=== PATIENT | female | born 1950 | race Caucasian/White ===

== ENCOUNTER 2019-08-21 14:56 | Outpatient (CLI) | payer OTHER, SELFPAY ==
[2019-08-21 16:06] LABS: Hematocrit 41.3 % (37.0-47.0); Hemoglobin 13.1 g/dL (12.0-15.0); Mean Corpuscular HGB Conc 31.7 g/dl (32-36); Mean Corpuscular Volume 91.4 fl (80-100); Mean Platelet Volume 10.7 fl (7.4-10.4); Platelet Count Result 308 k/mm3 (150-375); Red Blood Count 4.52 M/mm3 (4.2-5.4); Red Cell Distribution Width 12.9 % (11.5-14.5); White Blood Count 8.1 K/mm3 (4.5-10.0)
[2019-08-21 16:20] LABS: Alanine Aminotransferase 39 U/L (4-35); Albumin Level 4.4 g/dL (3.5-5.1); Alkaline Phosphatase 92 U/L (38-126); Aspartate Amino Transferase 38 U/L (14-36); Bilirubin,Total 0.2 mg/dL (0.2-1.3); Blood Urea Nitrogen 20 mg/dL (7-17); Calcium 9.2 mg/dL (8.4-10.2); Carbon Dioxide 28 mmol/L (22-30); Chloride 105 mmol/L (98-107); Cholesterol 136 mg/dL (0-200); Estimated Glomerular Filt Rate > 60; Glucose 118 mg/dL (65-105); HDL Direct 35 mg/dL; Potassium 4.5 mmol/L (3.4-5.0); Sodium 139 mmol/L (137-145); Triglycerides 156 mg/dL (<150)
[2019-08-21 16:28] LABS: Hemoglobin A1C 6.9 % (<5.7)
[2019-08-21 16:31] LABS: LDL Cholesterol Direct 71 mg/dL
== END 2019-08-21 14:57 | disposition home or self-care (01) ==
LOC: ANHIMG 14:59 → ANHLAB 15:02
PROVIDERS: PCP Internal Medicine; Visit Provider Internal Medicine
DX: E78.5 Hyperlipidemia, unspecified (principal); R73.9 Hyperglycemia, unspecified
CPT/HCPCS: 36415; 80053; 80061; 83036; 84443; 85027

== ENCOUNTER 2019-08-27 13:45 | Outpatient (CLI) | payer OTHER, SELFPAY ==
--- NOTE | ~2019-08-27 | US_ITS ---
US breast BI complete DATE: 08/27/2019 14:23 INDICATION: Right breast pain. Patient reportedly cannot tolerate mammography. TECHNIQUE: Bilateral complete breast ultrasound examination COMPARISON: None FINDINGS: Bilateral breast implants are evident. No suspicious mass or shadowing of either breast is detected sonographically. No breast cysts are not ed. Ultrasound does not supplant mammography for screening purposes and may miss findings very early javed st cancer such as subtle microcalcifications that could be detected mammographically. IMPRESSION: No sonographic evidence of breast mass Bilateral breast implants. Reviewed, dictated and finalized at [facility]. Reviewed, dictated and finalized at [facility].
== END 2019-08-27 13:46 | disposition home or self-care (01) ==
PROVIDERS: PCP Internal Medicine; Visit Provider Internal Medicine
DX: T85.49XA Other mechanical complication of breast prosthesis and implant, initial encounter (principal); N64.4 Mastodynia
CPT/HCPCS: 76641

== ENCOUNTER 2019-10-06 12:42 | Outpatient (CLI) | payer OTHER, SELFPAY ==
--- NOTE | ~2019-10-06 | MR_ITS ---
MR breast BI wo con 10/07/2019 08:42 CDT INDICATION: Possible bilateral implant rupture TECHNIQUE: MRI of the breasts perform using standard protocol without contrast with the following seq uences: Axial T2 fast spin-echo, axial vibrant, sagittal T2 fast spin echo, sagittal T2 STIR with corey icone suppression and sagittal T2 STIR with water suppression COMPARISON: No prior studies for comparison. FINDINGS: There are bilateral subglandular silicone implants. Subcapsular line and keyhole signs are noted in the right breast implant. There is a small amount of periimplant fluid bilaterally. There is subcapsular line sign within the left breast implant anteriorly. There is focal 1.5 cm irregular sha ped mass superior lateral aspect of the left breast. No contrast administered for evaluation of enhan cement. IMPRESSION: 1: Abnormal signal intensity within both breast implants, consistent with intracapsular rupture. No d efinite extracapsular rupture is identified. 2: Irregular shaped 1.5 cm left breast mass, upper outer quadrant. Additional spot compression and m ediolateral views with possible follow-up breast ultrasound recommended. BI-RADS CATEGORY 0 - INCOMPLETE STUDY, NEED ADDITIONAL IMAGING EVALUATION. Reviewed, dictated and finalized at location [facility]. IMPRESSION: 1: Abnormal signal intensity within both breast implants, consistent with intra capsular rupture. No definite extracapsular rupture is identified. 2: Irregular shaped 1.5 cm left breast mass, upper outer quadrant. Additional spot compression and mediolateral views with possible follow-up breast ultrasou nd recommended. BI-RADS CATEGORY 0 - INCOMPLETE STUDY, NEED ADDITIONAL IMAGING EVALUATION.
== END 2019-10-06 12:43 | disposition home or self-care (01) ==
PROVIDERS: PCP Internal Medicine; Visit Provider Surgery Plastic and Reconstructive Surgery
DX: N63.0 Unspecified lump in unspecified breast (principal); T85.43XA Leakage of breast prosthesis and implant, initial encounter; T85.44XA Capsular contracture of breast implant, initial encounter; R92.2 Inconclusive mammogram
CPT/HCPCS: 77047

== ENCOUNTER → 2019-10-28 13:44 | Outpatient (CLI) | payer OTHER, SELFPAY ==
--- NOTE | ~2019-10-28 | US_ITS ---
EXAMINATION: US breast LT limited HISTORY: Second look left breast ultrasound after abnormal MRI TECHNIQUE: Limited left breast ultrasound was performed. FINDINGS: There is a 1.0 x 0.8 cm oval, irregular, not parallel mass with indistinct margins, posteri or acoustic shadowing and peripheral vascularity at the 2:00 location 11 cm from the nipple correspon ding to the abnormality of concern on recent MR. IMPRESSION: Suspicious left breast mass. Ultrasound guided biopsy is recommended. BI-RADS category 4, suspicious findings. Reviewed, dictated and finalized at location [facility].
== END ==
PROVIDERS: PCP Internal Medicine; Visit Provider Surgery Plastic and Reconstructive Surgery
DX: N63.0 Unspecified lump in unspecified breast (principal); R92.8 Other abnormal and inconclusive findings on diagnostic imaging of breast
CPT/HCPCS: 76642

== ENCOUNTER 2020-08-05 16:30 | Outpatient (CLI) | payer OTHER, SELFPAY ==
--- NOTE | ~2020-08-05 | US_ITS ---
US venous doppler [facility] DATE: 08/05/2020 16:59 INDICATION: Pain and swelling of left lower extremity TECHNIQUE: Real-time and color flow imaging and Doppler analysis of the veins of the left lower extre mity COMPARISON: None FINDINGS: The greater saphenous vein is patent. There is spontaneous and phasic flow and normal augme ntation and color flow signal and normal compression of the deep veins of the left lower extremity. IMPRESSION: Negative examination; no evidence of deep venous thrombosis of the left lower extremity. Reviewed, dictated and finalized at [facility]. Reviewed, dictated and finalized at [facility].
== END 2020-08-05 16:31 | disposition home or self-care (01) ==
LOC: ANHIMG 16:31
PROVIDERS: PCP Internal Medicine; Visit Provider Internal Medicine Cardiovascular Disease
DX: M79.89 Other specified soft tissue disorders (principal)
CPT/HCPCS: 93971

== ENCOUNTER 2021-02-16 01:06 | Day surgery (SDC) | payer OTHER, SELFPAY ==
[2021-02-03 13:39] VITALS: BMI 38.7
[2021-02-16 11:47] VITALS: BP 161/61; PULSE 70; RESP 20; TEMP 36.2; O2SAT 96
[2021-02-16] MEDS: LACTATED RINGERS 1,000 ML 150 ML IV CONT (12:01)
--- NOTE | 2021-02-16 12:01 | WPDANESEPPF ---
Anes - Initial Pre Proc Eval Procedure: Operation Date: 02/16/21 13:00 Proposed Procedures p Screening Colonoscopy - David Romo MD Date/Time: 02/16/21 12:01 Surgeon: David Romo MD Pre Op Diagnosis: neoplasm screening Patient Data Age: 70 Gender: F Height: 1.55 m Weight: 92.8 kg Last Vital Signs Temp 36.2 C L 02/16/21 11:47 Pulse 70 02/16/21 11:47 Resp 20 02/16/21 11:47 BP 161/61 H 02/16/21 11:47 Pulse Ox 96 02/16/21 11:47 Allergies Allergy/AdvReac Type Severity Reaction Status Date / Time erythromycin base AdvReac Nausea and Verified 02/16/21 11:51 Vomiting Home Medications Medication Instructions Recorded Confirmed Type cholecalciferol (vitamin D3) 125 125 mcg PO DAILY 11/24/20 02/03/21 History mcg (5,000 unit) capsule glimepiride 1 mg tablet 1 mg PO QAM 11/24/20 02/03/21 History lorazepam 2 mg tablet 1 mg PO DAILY PRN 11/24/20 02/03/21 History losartan 50 mg tablet 50 mg PO DAILY 11/24/20 02/03/21 History montelukast 10 mg tablet 10 mg PO DAILY 11/24/20 02/03/21 History potassium gluconate 595 mg (99 mg) 595 mg PO DAILY 11/24/20 02/03/21 History tablet salmeterol 50 mcg/dose blister 1 inh INHALATION Q12H 11/24/20 02/03/21 History powder for inhalation venlafaxine 75 mg capsule,extended 150 mg PO DAILY 11/24/20 02/03/21 History release 24 hr vitamin E (dl, acetate) 180 mg 400 unit PO DAILY 11/24/20 02/03/21 History (400 unit) capsule fentanyl 50 mcg/hr transdermal 1 patch TRANSDERMAL Q48H #15 ea 01/20/21 02/03/21 Rx patch hydrocodone 10 mg-acetaminophen 1 tablet PO Q6H PRN 01/20/21 02/03/21 History 325 mg tablet gabapentin 400 mg PO DAILY 02/03/21 02/03/21 History semaglutide [Ozempic] 5 mg SUBCUT WEEKLY 02/03/21 02/03/21 History Patient hx anesthesia problems: none Family hx anesthesia problems: none Results Review: All pre-operative results and documents have been reviewed as part of the pre-operative evaluation. [facility] Past Medical History Medical History (Updated 02/16/21 @ 09:57 by Norris Jarquin DO) Anxiety Asthma Chronic, continuous use of opioids Depression Diabetes type 2, controlled Fibromyalgia Glaucoma Hyperlipidemia Hypertension Surgical History Surgical History (Updated 02/16/21 @ 09:57 by Norris Jarquin DO) History of coronary artery stent placement History of mastectomy Social History Social History Smoking packs per day: 0.5 Smoking cigarettes per day: 10.0 Years smoked: 30 Smoking pack-years: 15.00 Smoking status: Current every day smoker Tobacco type: cigarettes Alcohol intake: never Substance use: current Substance use type: other Other substance usage details: CBD oil Last use: 02/02/21 Living arrangements: alone Spiritual care concerns: No Anes - Eval Final PreProcedure Day of Procedure 02/16/21 12:01 Patient weight: obese Heart: regular rate and rhythm Lungs: clear to auscultation and normal air movement Airway: Mallampati scale class II Neurological: alert and oriented Last oral intake: >/= 8 hours ASA classification: III Emergent: no Anesthetic plan: proceed Anesthesia type and monitoring: general GIVS and standard monitoring Results Review: All pre-operative results and documents have been reviewed as part of the pre-operative evaluation. Informed Consent: The patient's anesthetic plan and its attendant risks and benefits were discussed with the patient/family/POA. Questions were solicited and answers provided to the satisfaction of the patient/family/POA.
--- NOTE | 2021-02-16 12:25 | PM.HPGS ---
History of Present Illness History of Present Illness Consent: Risks, benefits, and alternatives have been discussed and questions answered. Patient agrees to proceed with procedure. Chief complaint: neoplasm screening Narrative: Lesley Hollis is a 70 year old female Referred for colon cancer screening. Review of Systems Review of Systems: All systems reviewed & are unremarkable except as noted in HPI and below PMFSH Past Medical History Medical History Anxiety Asthma Chronic, continuous use of opioids Depression Diabetes type 2, controlled Fibromyalgia Glaucoma Hyperlipidemia Hypertension Surgical History Surgical History History of coronary artery stent placement History of mastectomy Social History Social History Smoking packs per day: 0.5 Smoking cigarettes per day: 10.0 Years smoked: 30 Smoking pack-years: 15.00 Smoking status: Current every day smoker Tobacco type: cigarettes Alcohol intake: never Substance use: current Substance use type: other Other substance usage details: CBD oil Last use: 02/02/21 Living arrangements: alone Spiritual care concerns: No Meds Home Medications and Allergies Home Medications Medication Instructions Recorded Confirmed Type cholecalciferol (vitamin D3) 125 125 mcg PO DAILY 11/24/20 02/03/21 History mcg (5,000 unit) capsule glimepiride 1 mg tablet 1 mg PO QAM 11/24/20 02/03/21 History lorazepam 2 mg tablet 1 mg PO DAILY PRN 11/24/20 02/03/21 History losartan 50 mg tablet 50 mg PO DAILY 11/24/20 02/03/21 History montelukast 10 mg tablet 10 mg PO DAILY 11/24/20 02/03/21 History potassium gluconate 595 mg (99 mg) 595 mg PO DAILY 11/24/20 02/03/21 History tablet salmeterol 50 mcg/dose blister 1 inh INHALATION Q12H 11/24/20 02/03/21 History powder for inhalation venlafaxine 75 mg capsule,extended 150 mg PO DAILY 11/24/20 02/16/21 History release 24 hr vitamin E (dl, acetate) 180 mg 400 unit PO DAILY 11/24/20 02/03/21 History (400 unit) capsule fentanyl 50 mcg/hr transdermal 1 patch TRANSDERMAL Q48H #15 ea 01/20/21 02/03/21 Rx patch hydrocodone 10 mg-acetaminophen 1 tablet PO Q6H PRN 01/20/21 02/03/21 History 325 mg tablet gabapentin 400 mg PO DAILY 02/03/21 02/16/21 History semaglutide [Ozempic] 5 mg SUBCUT WEEKLY 02/03/21 02/03/21 History Allergies Allergy/AdvReac Type Severity Reaction Status Date / Time erythromycin base AdvReac Nausea and Verified 02/16/21 11:51 Vomiting Vital Signs Vital Signs - 24 hr 02/16/21 11:47 Temperature 36.2 C L Pulse Rate 70 Respiratory Rate 20 Blood Pressure 161/61 H Pulse Oximetry 96 Exam Resp: Auscultation: clear to auscultation bilaterally Cardio: Rate: regular rate Rhythm: regular rhythm GI: GI Palp: Yes Soft to palpation and No Tenderness to palpation present (GI) Assessment and Plan Assessment and plan (1) Colon cancer screening: Code(s): Z12.11 - Encounter for screening for malignant neoplasm of colon Status: Acute Assessment and Plan: Colonoscopy with possible biopsy or polypectomy or cautery or injection of substances.
[2021-02-16 12:59] VITALS: BP 117/62; PULSE 66; RESP 20; O2SAT 97
[2021-02-16 13:09] VITALS: BP 123/57; PULSE 61; RESP 20; O2SAT 97
[2021-02-16 13:19] VITALS: BP 114/62; PULSE 64; RESP 20; O2SAT 97
[2021-02-16 14:50] LABS: Glucose Point of Care 126 mg/dl (65-105)
== END 2021-02-16 13:32 | disposition home or self-care (01) ==
PROVIDERS: PCP Internal Medicine; Visit Provider Internal Medicine Gastroenterology
PROC: 0DJD8ZZ Inspection of Lower Intestinal Tract, Via Natural or Artificial Opening Endoscopic (ICD-10-PCS; CPT 45378; principal; 2021-02-16 13:00)
DX: Z12.11 Encounter for screening for malignant neoplasm of colon (principal); K62.1 Rectal polyp; K57.30 Diverticulosis of large intestine without perforation or abscess without bleeding; E11.9 Type 2 diabetes mellitus without complications; I10 Essential (primary) hypertension; E78.5 Hyperlipidemia, unspecified; M79.7 Fibromyalgia; J44.9 Chronic obstructive pulmonary disease, unspecified; H40.9 Unspecified glaucoma; Z79.891 Long term (current) use of opiate analgesic; Z79.84 Long term (current) use of oral hypoglycemic drugs; Z79.51 Long term (current) use of inhaled steroids; Z95.5 Presence of coronary angioplasty implant and graft; F17.210 Nicotine dependence, cigarettes, uncomplicated; F12.90 Cannabis use, unspecified, uncomplicated; E66.9 Obesity, unspecified; Z68.38 Body mass index [BMI] 38.0-38.9, adult
CPT/HCPCS: 45385; 82948; 88305; J2001; J2704; J7120

== ENCOUNTER → 2021-03-07 15:49 | Outpatient (CLI) | payer OTHER, SELFPAY ==
--- NOTE | ~2021-03-07 | XR_ITS ---
EXAMINATION: [id number] EXAM DATE: 03/07/2021 16:05 INDICATION: No known recent injury provided at this time. Pain of the cervical spine. TECHNIQUE: Cervical spine frontal, lateral, lateral swimmers, and open-mouth odontoid projections. There is no prior study for comparison. FINDINGS: Mild to moderate cervical arthropathy. Mild cervical diffuse disc disease. The odontoid pr ocess is intact. The lateral masses of C1 line up with C2. Prevertebral soft tissue and pre-dens spa ce are within normal limits. The vertebral bodies are aligned in the AP dimension. Lung apices are cl ear. IMPRESSION: Mild to moderate cervical spondylosis. Reviewed, dictated and finalized at [facility]. O LEAD
== END ==
PROVIDERS: Visit Provider Nurse Practitioner Family
DX: M47.892 Other spondylosis, cervical region (principal)
CPT/HCPCS: 72040

== ENCOUNTER → 2021-03-11 08:32 | Outpatient (CLI) | payer OTHER, SELFPAY ==
[2021-03-12 16:24] LABS: SARS-CoV-2 RNA PCR Positive
== END ==
DX: U07.1 COVID-19 (principal)
CPT/HCPCS: C9803; U0003; U0005

== ENCOUNTER → 2022-06-15 10:24 | Outpatient (CLI) | payer OTHER, SELFPAY ==
--- NOTE | ~2022-06-15 | DEXA_ITS ---
Bone Density Report Name: WU GRAY Age: 71 Sex: Female Ethnicity: White Date of : 1950 Indication: postmenopausal; screening for osteoporosis; asthma or emphysema; hysterectomy; Referring Provider: Casandra, Josie Study: Bone densitometry was performed. Exam Date: June 15, 2022 Accession number: [id number] Bone Density: Region BMD T-score Z-score Classification AP Spine (L1-L4) 0.964 -0.8 1.5 Normal Femoral Neck (Left) 0.697 -1.4 0.6 Osteopenia Total Hip (Left) 0.925 -0.1 1.5 Normal Femoral Neck (Right) 0.686 -1.5 0.5 Osteopenia Total Hip (Right) 0.819 -1.0 0.6 Normal Total Hip Mean 0.872 -0.6 1.1 Normal World Health Organization criteria for BMD impression classify patients as: Normal (T-score at or above -1.0), Osteopenia (T-score between -1.0 and -2.5), or Osteoporosis (T-score at or below -2.5). 10-year Fracture Risk(1): Major Osteoporotic Fracture 9.9% Hip Fracture 2.5% Reported Risk Factors: [place] (), Neck BMD=0.686, BMI=34.8, smoking (1) FRAX(R) Version 3.08. Fracture probability calculated for an untreated patient. Fracture probability may be lower if the patient has received treatment. Clinical Information Provided by Patient: Smokes Has used the following medications: Vitamin D Has the following medical conditions: Asthma or Emphysema, Hysterectomy, BREAST CA 2019 Patient maximum height was 61.75 Menopause Age: 31 No regular weight bearing exercise Does not regularly consume dairy products Drinks caffeinated beverages Onset of menses at age 11 Number of children 4 Impression: The patient has low bone mass, based on the Right Femoral Neck T-score. The patient has an estimated ten-year risk of hip fracture of 2.5% and an estimated ten-year risk of major fracture of 9.9%, based on the WHO FRAX algorithm. The patient has risk factors, including: smoking. Discussion: BONE DENSITY IS LOW AT ONE OR MORE SKELETAL SITES. This patient's lowest T-score is low at one or more skeletal sites. It meets the World Health Organization's (WHO) criteria for ?low bone mass? (T-score between -1.0 and -2.5). The patient's 10-year risk of fracture as calculated by FRAX is less than the threshold where pharmacological therapy is recommended by the National Osteoporosis Foundation (NOF). However, all treatment decisions require clinical judgment and consideration of individual patient factors, including patient preferences, comorbidities, previous drug use, risk factors not captured in the FRAX model (e.g., frailty, falls, vitamin D deficiency, increased bone turnover, interval significant decline in bone density) and possible under or overestimation of fracture risk by FRAX. The patient should follow a healthful lifestyle (good nutrition with adequate calcium and vitami
== END ==
PROVIDERS: PCP Internal Medicine; Visit Provider Internal Medicine
DX: Z13.820 Encounter for screening for osteoporosis (principal); M81.0 Age-related osteoporosis without current pathological fracture; Z78.0 Asymptomatic menopausal state
CPT/HCPCS: 77080